=== PATIENT | female | born 1935 | race Caucasian/White ===

== ENCOUNTER → 2016-07-11 | Outpatient (CLI) | payer MEDICARE ==
[~2016-07-11] MED LIST: ALEV220C2 PO; CALC600T21 PO; COUM2.5T11 PO; DILA100C PO; FLEEENE4 PR; LAMO10TA PO; MILKSUS PO; MIRA3350 PO; MULTCAP PO; NATU400T PO; NEXI40CA PO; PARO20TA2 PO; PERC5TAB6 PO; SENO8.6T2 PO; TYLE325T5 PO; VESI10TA PO; VITA-130 PO; VITAMINB PO; ZOFR20TA PO; [UNRECOGNIZED DRUG - CODE] PO
--- NOTE | 2016-07-15 06:16 | SLEEPCENT ---
DATE OF PROCEDURE: 07/11/2016 ORDERED BY: Mariana Roche Nocturnal polysomnography was performed for the titration of pressure therapy in this patient with obstructive sleep apnea syndrome confirmed by home testing revealing a respiratory event index of 41. For testing, the patient was fit with a [employer]Med Quattro full face mask of small size, 4 cm of water pressure were applied to the circuit and the lights were extinguished. 8 hours and 5 minutes of data were reviewed. There were 312 minutes of sleep identified. Sleep latency was short at 26 minutes. Rapid eye movement (REM) latency was prolonged at 165 minutes. Sleep architecture was fragmented with periods of wake. Improvement was seen late in the study and there was one prolonged rapid eye movement (REM) period. Overall sleep efficiency was 65.5%. Patient's EKG shows a sinus rhythm with an average heart rate of 85 beats per minute. Occasions of premature ventricular contractions were noted. EEG showed reasonably normal wave forms for awake and sleep. Persistence of respiratory events prompted an increase in CPAP. Despite optimal mask fir and minimal air leak, the patient required a change to a bilevel device and optimal sleep was seen on a bilevel therapy, inspiratory 23 over expiratory of 18. IMPRESSION: Obstructive sleep apnea syndrome (G47.33). RECOMMENDATION: Nightly use of bilevel pressure therapy, inspiratory 23, expiratory 18.
== END ==
LOC: M SLEEP 19:43
PROVIDERS: ATTEND Nurse Practitioner Adult Health
DX: G47.33 Obstructive sleep apnea (adult) (pediatric) (principal)

== ENCOUNTER 2016-08-11 19:46 | Emergency (ER) | payer MEDICARE, MEDICAID ==
[~2016-08-11] VITALS: Ht 162.6 cm; Wt 77.1 kg
[~2016-08-11 19:46] MED LIST changes: -PARO20TA2 PO; +PARO20TA3 PO
[2016-08-11] MEDS ORDERED: FOLI1TAB2 PO (20:02)
[2016-08-11] MEDS ORDERED: ONDANSETRON 4MG/2ML VIAL (J2405) IV ONE (20:30)
[2016-08-11] MEDS ORDERED: MORPHINE 2 MG/ML 1ML SYRINGE IV PRN (20:30)
[2016-08-11] MEDS ORDERED: NS 500 ML IV ONE (20:30)
[2016-08-11 21:13] LABS: BASO % 0.3 % (0.0-1.0); EOS % 0.5 % (0.0-3.0); LARGE UNSTAINED CELL # 0.2 K/mm3 (0.0-0.4); LARGE UNSTAINED CELL % 1.8 % (0.0-4.0); LYMPH # 1.8 K/mm3 (1.5-4.5); LYMPH % 19.1 % (24.0-44.0); MEAN CORPUSCULAR HEMOGLOBIN 32.5 pg (27.0-33.0); MEAN CORPUSCULAR HGB CONC 33.7 g/dl (32.0-36.5); MEAN CORPUSCULAR VOLUME 96.4 fl (80.0-96.0); MONO # 0.6 K/mm3 (0.0-0.8); MONO % 6.2 % (0.0-5.0); NEUTROPHILS # 6.9 K/mm3 (1.8-7.7); NEUTROPHILS % 72.1 % (36.0-66.0); PLATELET COUNT, AUTOMATED 215 k/mm3 (150-450); RED CELL DISTRIBUTION WIDTH 14.1 % (11.5-14.5); WHITE BLOOD COUNT 9.6 K/mm3 (4.0-10.0)
[2016-08-11 22:26] LABS: ALBUMIN 3.4 GM/DL (3.2-5.2); ALBUMIN/GLOBULIN RATIO 0.92 (1.00-1.93); ALKALINE PHOSPHATASE 315 U/L (45-117); ALT/SGPT 25 U/L (12-78); ANION GAP 9 MEQ/L (8-16); AST/SGOT 22 U/L (15-37); BILIRUBIN,DIRECT 0.1 MG/DL (0.0-0.2); BILIRUBIN,TOTAL 0.3 MG/DL (0.2-1.0); BLOOD UREA NITROGEN 27 MG/DL (7-18); CALCIUM LEVEL 8.4 MG/DL (8.8-10.2); CARBON DIOXIDE LEVEL 25 MEQ/L (21-32); CHLORIDE LEVEL 106 MEQ/L (98-107); CREATININE FOR GFR 0.57 MG/DL (0.55-1.02); GLOMERULAR FILTRATION RATE > 60.0 (>39); GLUCOSE, FASTING 86 MG/DL (83-110); POTASSIUM SERUM 3.9 MEQ/L (3.5-5.1); SODIUM LEVEL 140 MEQ/L (136-145); TOTAL PROTEIN 7.1 GM/DL (6.4-8.2)
[2016-08-11] MEDS ORDERED: ISOVUE-370 76% 100ML VIAL (Q9967) As Ordered ONE (22:48)
--- NOTE | 2016-08-11 23:30 | REPUSA ---
CT of the abdomen and pelvis with contrast Clinical statement: Pain. Technique: Multiple axial CT images were obtained from the base of the lungs through the floor of the pelvis utilizing 5 mm axial slices after administration of nonionic intravenous contrast. Coronal an d sagittal reconstructions were also obtained. No comparison is available. Findings: Chest: The visualized lung bases are clear. Abdomen: The liver, spleen, pancreas, kidneys, and adrenal glands are unremarkable. Several gallstone s are seen within the gallbladder. There is no gallbladder wall thickening or pericholecystic free fl uid. The aorta is within normal limits. There is no evidence of abdominal lymphadenopathy or ascites. IVC filter is in place. Pelvis: There is diffuse bowel wall thickening involving the colon, extending from the distal transve rse colon through the rectum.. No focal evidence of bowel obstruction is identified. The urinary blad moises is within normal limits. The other pelvic structures appear grossly intact. There is no evidence of pelvic lymphadenopathy or ascites. Bones: There are no suspicious osseous abnormalities seen. Multilevel degenerative disc disease is no jeremiah throughout the lumbar spine, most severe at L4/L5 and L5/S1. Impression: 1. Diffuse bowel wall thickening involving the descending and sigmoid colon colon, to the level of th e rectum, consistent with colitis, most likely infectious in nature. Clinical correlation is recommen ded. No evidence of bowel obstruction is seen. 2. Cholelithiasis without evidence of acute cholecystitis. 3. 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
[2016-08-11] MEDS ORDERED: FLAG500T PO (23:41)
[2016-08-11] MEDS ORDERED: CIPR500T89 PO (23:41)
[2016-08-11] MEDS ORDERED: metroNIDAZOLE (FLAGYL) 500 MG TAB PO ONE (23:45)
[2016-08-11] MEDS ORDERED: CIPROFLOXACIN 500 MG TAB PO ONE (23:45)
[2016-08-11 23:54] VITALS: BP 152/72
== END 2016-08-11 23:56 | disposition home or self-care (01) ==
LOC: M ED 21:48
DX: E86.0 Dehydration (principal); R11.2 Nausea with vomiting, unspecified; K52.9 Noninfective gastroenteritis and colitis, unspecified; K80.20 Calculus of gallbladder without cholecystitis without obstruction; M51.36 Other intervertebral disc degeneration, lumbar region; M51.37 Other intervertebral disc degeneration, lumbosacral region; R56.9 Unspecified convulsions; Z79.899 Other long term (current) drug therapy; Z88.1 Allergy status to other antibiotic agents
CPT/HCPCS: 36415; 74177; 80048; 80076; 81001; 83605; 83690; 85025; 96374; 96375; 99283; J2405; Q9967

== ENCOUNTER → 2016-09-29 | Outpatient (REF) | payer MEDICARE, MEDICAID ==
[~2016-09-29] MED LIST changes: +CIPR500T89 PO; +FLAG500T PO; +FOLI1TAB2 PO
[2016-09-29 17:51] LABS: FOLATE > 24.0 NG/ML (>5.4)
== END ==
LOC: M LAB REF 17:00
PROVIDERS: ATTEND Internal Medicine
DX: R56.9 Unspecified convulsions (principal)

== ENCOUNTER → 2017-04-07 | Outpatient (REF) | payer MEDICARE, MEDICAID ==
[~2017-04-07] MED LIST changes: -CALC600T21 PO; +CALC600T60 PO; +CIPR-249 PO; -CIPR500T89 PO; -COUM2.5T11 PO; +COUM2.5T17 PO; -FOLI1TAB2 PO; +FOLI1TAB4 PO; +PERC5TAB12 PO; -PERC5TAB6 PO; -SENO8.6T2 PO; +SENO8.6T5 PO; -VESI10TA PO; +VESI10TA2 PO; -VITA-130 PO; +VITA500T PO
== END ==
LOC: M LAB REF 16:55
PROVIDERS: ATTEND Internal Medicine
DX: R56.9 Unspecified convulsions (principal)

== ENCOUNTER → 2017-11-19 | Outpatient (REF) | payer MEDICARE, MEDICAID ==
[2017-11-19 17:28] LABS: PHENYTOIN (DILANTIN) 9.2 UG/ML (10.0-20.0)
[2017-11-19 18:16] LABS: FOLATE > 24.0 NG/ML (>5.4)
[2017-11-24 00:07] LABS: LAMOTRIGINE (LAMICTAL) 2.2 ug/mL (2.0-20.0)
== END ==
LOC: M LAB REF 16:56
DX: R56.9 Unspecified convulsions (principal)
CPT/HCPCS: 80185

== ENCOUNTER 2018-01-15 11:02 | Emergency (ER) | payer MEDICARE, MEDICAID ==
[2018-01-15 12:53] LABS: BASO # 0.1 10^3/uL (0.0-0.2); EOS # 0.3 10^3/uL (0.0-0.50); EOS % 4.1 % (0.0-3.0); HEMATOCRIT 41.5 % (36.0-47.0); HEMOGLOBIN 14.1 g/dl (12.0-15.5); IMMATURE GRANULOCYTE % 0.2 % (0-3.0); LYMPH % 33.2 % (24.0-44.0); MEAN CORPUSCULAR HEMOGLOBIN 32.9 pg (27.0-33.0); MEAN CORPUSCULAR VOLUME 96.7 fl (80.0-96.0); MONO # 0.5 10^3/uL (0.0-0.8); MONO % 7.4 % (0.0-5.0); NEUTROPHILS # 3.3 10^3/uL (1.8-7.7); NEUTROPHILS % 54.1 % (36.0-66.0); PLATELET COUNT, AUTOMATED 322 10^3/uL (150-450); RED BLOOD COUNT 4.29 10^6/uL (4.00-5.40); RED CELL DISTRIBUTION WIDTH 14.3 % (11.5-14.5); WHITE BLOOD COUNT 6.1 10^3/uL (4.0-10.0)
[2018-01-15 13:03] LABS: INR 1.04; PROTHROMBIN TIME 13.7 SECONDS (12.1-14.4)
[2018-01-15] MEDS: diphenhydrAMINE INJ 50MG/ML VIAL (J1200) IV (13:03)
[2018-01-15] MEDS: NS 1,000 ML IV (13:03)
[2018-01-15] MEDS: METOCLOPRAMIDE INJ 10MG/2ML VIAL (J2765) IV (13:03)
[2018-01-15 13:24] LABS: BEDSIDE GLUCOSE 79 MG/DL (83-110)
[2018-01-15 13:41] LABS: ACETAMINOPHEN LEVEL 4.3 UG/ML (10.0-30.0); ALBUMIN 3.8 GM/DL (3.2-5.2); ALBUMIN/GLOBULIN RATIO 0.95 (1.00-1.93); ALKALINE PHOSPHATASE 395 U/L (45-117); ALT/SGPT 29 U/L (12-78); ANION GAP 6 MEQ/L (8-16); AST/SGOT 34 U/L (7-37); BILIRUBIN,DIRECT 0.1 MG/DL (0.0-0.2); BILIRUBIN,TOTAL 0.3 MG/DL (0.2-1.0); BLOOD UREA NITROGEN 11 MG/DL (7-18); CALCIUM LEVEL 9.4 MG/DL (8.8-10.2); CARBON DIOXIDE LEVEL 29 MEQ/L (21-32); CHLORIDE LEVEL 103 MEQ/L (98-107); CPK CREATINE PHOSPHOKINASE 49 U/L (26-192); CREATININE FOR GFR 0.61 MG/DL (0.55-1.30); GLOMERULAR FILTRATION RATE > 60.0 (>32); GLUCOSE, FASTING 82 MG/DL (70-100); MB/CK RELATIVE INDEX 2.86 (< OR =4); PHENYTOIN (DILANTIN) 11.4 UG/ML (10.0-20.0); POTASSIUM SERUM 4.8 MEQ/L (3.5-5.1); SALICYLATE LEVEL < 1.7 MG/DL (5.0-30.0); SODIUM LEVEL 138 MEQ/L (136-145); TOTAL PROTEIN 7.8 GM/DL (6.4-8.2); TROPONIN I < 0.02 NG/ML (< 0.10)
[2018-01-15] MEDS: KETOROLAC 30 MG/ML VIAL (J1885) IV (15:13)
[2018-01-15] MEDS: KETOROLAC TROMETHAMINE 10 MG TAB PO (15:23)
== END 2018-01-15 15:45 | disposition home or self-care (01) ==
LOC: M ED 11:02
DX: R51 Headache (principal); I10 Essential (primary) hypertension; Z86.73 Personal history of transient ischemic attack (TIA), and cerebral infarction without residual deficits; R56.9 Unspecified convulsions; Z87.891 Personal history of nicotine dependence; Z82.3 Family history of stroke; Z79.899 Other long term (current) drug therapy; Z88.0 Allergy status to penicillin
CPT/HCPCS: J1200

== ENCOUNTER → 2018-06-30 | Outpatient (REF) | payer MEDICARE, MEDICAID ==
[~2018-06-30] MED LIST changes: +FOLI1TAB11 PO; -FOLI1TAB4 PO; +GABA-845 PO; +MILK120011 PO; -MILKSUS PO; +PRAV10TA4 PO; +REGL10TA6 PO; -ZOFR20TA PO; +ZOFR4TAB16 PO
[2018-06-30 18:58] LABS: PHENYTOIN (DILANTIN) 11.7 UG/ML (10.0-20.0)
[2018-06-30 19:07] LABS: FOLATE > 24.0 NG/ML (>5.4)
== END ==
LOC: M LAB REF 17:12
PROVIDERS: ATTEND Internal Medicine
DX: R56.9 Unspecified convulsions (principal); Z79.899 Other long term (current) drug therapy

== ENCOUNTER → 2018-08-17 | Outpatient (CLI) | payer MEDICARE, MEDICAID ==
[~2018-08-17] MED LIST changes: +LAMO100T80 PO; -LAMO10TA PO
[2018-08-17 19:07] LABS: RHEUMATOID FACTOR QUANT < 10.0 IU/ML (<15.0); URIC ACID 3.8 MG/DL (2.6-6.0)
[2018-08-20 00:08] LABS: ANTI DOUBLE STRAND-DNA AB 24 IU/mL (0-9); ANTINUCLEAR ANTIBODIES DIRECT Positive (Negative); Lyme Disease IgG/IgM Antibodie <0.91 ISR (0.00-0.90); Lyme Disease IgM Ab Quantitati <0.80 index (0.00-0.79); RNP ANTIBODIES <0.2 AI (0.0-0.9); SJOGREN'S ANTI SS-A <0.2 AI (0.0-0.9); SJOGREN'S ANTI SS-B <0.2 AI (0.0-0.9); SMITH ANTIBODIES <0.2 AI (0.0-0.9)
== END ==
LOC: M SMT 12:59
PROVIDERS: ATTEND Physician Assistant
DX: M17.11 Unilateral primary osteoarthritis, right knee (principal)

== ENCOUNTER → 2018-08-25 | Outpatient (REF) | payer MEDICARE, MEDICAID | LOC: M LAB REF 11:32 | PROVIDERS: ATTEND Physician Assistant | DX: R50.9 Fever, unspecified (principal); R05 Cough ==

== ENCOUNTER → 2019-01-05 | Outpatient (REF) | payer MEDICARE, MEDICAID ==
[2019-01-05 17:39] LABS: C REACTIVE PROTEIN QUANTITATIV 0.89 MG/DL (0.00-0.30); PHENYTOIN (DILANTIN) 8.7 UG/ML (10.0-20.0); RHEUMATOID FACTOR QUANT < 10.0 IU/ML (<15.0)
== END ==
LOC: M LAB REF 16:43
PROVIDERS: ATTEND Internal Medicine
DX: R56.9 Unspecified convulsions (principal); M25.541 Pain in joints of right hand

== ENCOUNTER → 2019-06-07 | Outpatient (REF) | payer MEDICARE, MEDICAID ==
[2019-06-07 18:45] LABS: PHENYTOIN (DILANTIN) 11.4 UG/ML (10.0-20.0)
[2019-06-08 11:56] LABS: FOLATE > 24.0 NG/ML (>5.4)
== END ==
LOC: M LAB REF 17:22
PROVIDERS: ATTEND Internal Medicine
DX: R56.9 Unspecified convulsions (principal); M25.549 Pain in joints of unspecified hand

== ENCOUNTER → 2019-06-15 | Outpatient (CLI) | payer MEDICARE, MEDICAID ==
--- NOTE | 2019-06-15 11:27 | REP ---
Clinical: Cough . Comparison: 11/19/2017 . Technique: PA and lateral. Findings: The mediastinum and cardiac silhouette are normal. The lung lieberman demonstrate chronic changes related to granulomatous disease without acute consolidation, effusion, or pneumothorax. The skeletal structures are intact and normal. Impression: 1. No acute cardiopulmonary process. Electronically Signed by Barrington Moya MD 06/15/2019 11:19 A
== END ==
LOC: M WUC 11:05
PROVIDERS: ATTEND Internal Medicine
DX: R05 Cough (principal)

== ENCOUNTER → 2019-10-07 | Outpatient (REF) | payer MEDICARE, MEDICAID ==
[~2019-10-07] MED LIST changes: +VITA-243 PO; -VITA500T PO
== END ==
LOC: M LAB REF 17:41
PROVIDERS: ATTEND Internal Medicine
DX: R56.9 Unspecified convulsions (principal)

== ENCOUNTER → 2020-03-12 | Outpatient (REF) | payer MEDICARE, MEDICAID ==
[2020-03-12 13:53] LABS: FOLATE > 24.0 NG/ML (>5.4); PHENYTOIN (DILANTIN) 12.4 UG/ML (10.0-20.0)
== END ==
LOC: M LAB REF 12:15
PROVIDERS: ATTEND Internal Medicine
DX: R56.9 Unspecified convulsions (principal); R41.81 Age-related cognitive decline

== ENCOUNTER → 2020-10-03 | Outpatient (REF) | payer MEDICARE, MEDICAID ==
[~2020-10-03] MED LIST changes: +GABA-283 PO; -GABA-845 PO
== END ==
LOC: M LAB REF 16:17
PROVIDERS: ATTEND Internal Medicine
DX: Z79.899 Other long term (current) drug therapy (principal); R56.9 Unspecified convulsions

== ENCOUNTER → 2021-04-05 | Outpatient (REF) | payer MEDICARE, MEDICAID ==
[2021-04-05 18:00] LABS: PHENYTOIN (DILANTIN) 11.7 UG/ML (10.0-20.0)
[2021-04-05 18:06] LABS: FOLATE > 24.0 NG/ML (>5.4)
== END ==
LOC: M LAB REF 16:26
PROVIDERS: ATTEND Internal Medicine
DX: R41.81 Age-related cognitive decline (principal); R56.9 Unspecified convulsions

== ENCOUNTER → 2021-10-16 | Outpatient (REF) | payer MEDICARE, MEDICAID ==
[2021-10-16 17:30] LABS: PHENYTOIN (DILANTIN) 11.8 UG/ML (10.0-20.0)
[2021-10-16 17:40] LABS: FOLATE > 24.0 NG/ML (>5.4)
== END ==
LOC: M LAB REF 16:10
PROVIDERS: ATTEND Internal Medicine
DX: R41.81 Age-related cognitive decline (principal); R56.9 Unspecified convulsions

== ENCOUNTER → 2022-03-25 | Outpatient (REF) | payer MEDICARE, MEDICAID ==
[2022-03-25 19:21] LABS: PHENYTOIN (DILANTIN) 9.6 UG/ML (10.0-20.0)
[2022-03-26 17:14] LABS: FOLATE > 24.00 NG/ML (>5.4)
== END ==
LOC: M LAB REF 16:22
PROVIDERS: ATTEND Internal Medicine
DX: R56.9 Unspecified convulsions (principal)

== ENCOUNTER → 2022-12-19 | Outpatient (REF) | payer MEDICARE, MEDICAID ==
[~2022-12-19] MED LIST changes: -GABA-283 PO; +GABA-284 PO
[2022-12-19 17:18] LABS: PHENYTOIN (DILANTIN) 9.4 UG/ML (10.0-20.0)
[2022-12-19 17:19] LABS: FOLATE > 24.00 NG/ML (>5.4)
== END ==
LOC: M LAB REF 16:22
PROVIDERS: ATTEND Internal Medicine
DX: R56.9 Unspecified convulsions (principal); R26.89 Other abnormalities of gait and mobility

== ENCOUNTER → 2023-09-02 | Outpatient (CLI) | payer OTHER, MEDICAID ==
[2023-09-02 15:47] LABS: BASO # 0.1 10^3/uL (0.0-0.2); BASO % 0.9 % (0.0-1.0); EOS # 0.2 10^3/uL (0.0-0.5); EOS % 2.8 % (0.0-3.0); HEMATOCRIT 38.4 % (36.0-47.0); HEMOGLOBIN 13.2 g/dl (12.0-15.5); LYMPH # 2.1 10^3/uL (1.5-5.0); LYMPH % 27.8 % (24.0-44.0); MEAN CORPUSCULAR HGB CONC 34.4 g/dl (32.0-36.5); MONO # 0.5 10^3/uL (0.0-0.8); NEUTROPHILS # 4.6 10^3/uL (1.5-8.5); NEUTROPHILS % 61.4 % (36.0-66.0); PLATELET COUNT, AUTOMATED 302 10^3/uL (150-450); WHITE BLOOD COUNT 7.4 10^3/uL (4.0-10.0)
[2023-09-02 15:57] LABS: ALKALINE PHOSPHATASE 319 U/L (46-116); ALT/SGPT 28 U/L (7.0-40); AST/SGOT 28 U/L (<34); BILIRUBIN,TOTAL 0.4 MG/DL (0.3-1.2); BLOOD UREA NITROGEN 15 MG/DL (9-23); CALCIUM LEVEL 9.8 MG/DL (8.3-10.6); CARBON DIOXIDE LEVEL 27 MMOL/L (20-31); CHLORIDE LEVEL 99 MMOL/L (98-107); CREATININE FOR GFR 0.51 MG/DL (0.55-1.30); GLOMERULAR FILTRATION RATE > 60.0 (>32); GLUCOSE, FASTING 83 MG/DL (74-106); POTASSIUM SERUM 4.5 MMOL/L (3.5-5.1); SODIUM LEVEL 132 MMOL/L (136-145); TOTAL PROTEIN 7.5 G/DL (5.7-8.2)
[2023-09-02 16:04] LABS: PHENYTOIN (DILANTIN) 9.1 UG/ML (10.0-20.0)
== END ==
LOC: M PLALAB 10:05
PROVIDERS: ATTEND Psychiatry & Neurology Neurology
DX: R56.9 Unspecified convulsions (principal)

== ENCOUNTER → 2023-12-21 | Outpatient (REF) | payer OTHER, MEDICAID | LOC: M LAB REF 16:37 | PROVIDERS: ATTEND Internal Medicine | DX: R56.9 Unspecified convulsions (principal) ==

== ENCOUNTER → 2024-06-22 | Outpatient (REF) | payer OTHER, MEDICAID | LOC: M LAB REF 16:31 | PROVIDERS: ATTEND Internal Medicine | DX: R56.9 Unspecified convulsions (principal) ==

== ENCOUNTER → 2025-01-24 | Outpatient (REF) | payer MEDICARE, MEDICAID ==
[~2025-01-24] MED LIST changes: +PRAV10TA PO; -PRAV10TA4 PO; +SENN-225 PO; -SENO8.6T5 PO
== END ==
LOC: M LAB REF 12:02
DX: Z11.1 Encounter for screening for respiratory tuberculosis (principal)

== ENCOUNTER → 2025-03-07 | Outpatient (REF) | payer MEDICARE, MEDICAID | LOC: M LAB REF 17:07 | PROVIDERS: ATTEND Internal Medicine | DX: R56.9 Unspecified convulsions (principal) ==